=== PATIENT | female | born 1965 | race Caucasian/White ===

== ENCOUNTER 2022-03-11 06:23 | Inpatient (IN) | payer BC ==
[2022-03-08 12:29] LABS: BASOPHILS # (AUTO) 0.1 X10'3 (0-0.2); BASOPHILS % (AUTO) 0.5 % (0-1); EOSINOPHILS # (AUTO) 0.5 X10'3 (0-0.9); EOSINOPHILS % (AUTO) 3.2 % (0-6); LYMPHOCYTES % (AUTO) 26.5 % (21-51); MEAN CORPUSCULAR HEMOGLOBIN 17.9 PG (27.0-31.0); MEAN CORPUSCULAR HGB CONC 31.2 g/dL (33.0-36.5); MEAN CORPUSCULAR VOLUME 57.5 FL (78-98); MEAN PLATELET VOLUME 8.7 FL (7.4-10.4); MONOCYTES # (AUTO) 1.2 X10'3 (0-0.9); MONOCYTES % (AUTO) 8.2 % (2-12); NEUTROPHILS # (AUTO) 9.4 X10'3 (1.8-7.7); NEUTROPHILS % (AUTO) 61.6 % (42-75); PRE OP HEMATOCRIT 37.5 % (35.0-45.0); PRE OP HEMOGLOBIN 11.7 g/dL (12.0-16.0); PRE OP PLATELET COUNT 288 X10'3 (140-440); RED BLOOD COUNT 6.53 X10'6 (4.20-5.60)
[2022-03-08 12:43] LABS: PRE OP PROTIME 10.3 SECONDS (9.0-12.0)
[2022-03-08 12:56] LABS: ALBUMIN 3.8 G/DL (3.4-5.0); ALKALINE PHOSPHATASE 128 IU/L (46-116); BLOOD UREA NITROGEN 20 MG/DL (7-18); BUN/CREATININE RATIO 31.7 (6.6-38.0); CALCIUM 9.3 MG/DL (8.5-10.1); CREATININE 0.63 MG/DL (0.40-0.90); PRE OP ALT 35 U/L (30-65); PRE OP AST 18 U/L (10-37); PRE OP BILIRUB, TOTAL 0.7 MG/DL (0.0-1.0); PRE OP GLUCOSE 75 MG/DL (70-104); TOTAL PROTEIN 7.5 G/DL (6.4-8.2); eGFR > 90 ML/MIN
[2022-03-08 13:10] LABS: PLATELET ESTIMATE NORMAL; TARGET CELLS FEW; TOTAL CELLS COUNTED 100
[2022-03-08 13:11] LABS: ELLIPTOCYTES FEW; LARGE PLATELETS FEW; MICROCYTOSIS 3+
[2022-03-08 13:12] LABS: ACANTHOCYTES FEW
[2022-03-08 13:18] LABS: HEMOGLOBIN A1C 6.2 % (4.5-6.2)
[2022-03-08 13:58] LABS: CHLORIDE 104 MMOL/L (99-107); PRE OP ANION GAP 9 (8-16); PRE OP POTASSIUM 4.1 MMOL/L (3.4-5.1); PRE OP SODIUM 142 MMOL/L (135-145); TOTAL CARBON DIOXIDE 29.3 MMOL/L (24-32)
[~2022-03-11] VITALS: Ht 154.9 cm; Wt 70.0 kg
[2022-03-11] VITALS (18 sets, daily range): BP systolic 98–127; BP diastolic 48–69
[~2022-03-11 06:23] MED LIST: ATEN-169 PO; DOCUMENT DATE & TIME OF BETA-BLOCKER PO ONE; DOXY-224 PO; FOLI1TAB27 PO; GLIM2TAB6 PO; LEVO50TA8 PO; PIME30CR6 TOP; [UNRECOGNIZED DRUG - CODE] TOP; acetaminophen 325mg tablet PO ONE; ceFAZolin inj. 2,000 MG in dextrose 5%-water 100 ML IV ONE; celeCOXIB 100mg capsule PO ONE; famotidine 20mg tablet PO ONE; gabapentin 300mg capsule PO ONE; metoclopramide 5 mg/ml inj IV ONE; oxyCODONE SR 10mg (sust. release) tab -2 tabs (20mg) PO ONE; tranexamic acid inj. 1,000 MG in normal saline 100ml IV soln 100 ML IV ONE; vancomycin/NS 1 GM in NS 250 ML IV ONE
[2022-03-11] MEDS ORDERED: glucagon, human recombinant 1mg kit SUBCUT PRN (06:35)
[2022-03-11] MEDS ORDERED: diphenhydrAMINE 25mg capsule PO PRN ×2 (06:35)
[2022-03-11] MEDS ORDERED: tranexamic acid inj. 1,000 MG in normal saline 100ml IV soln 90 ML IV ONE ×2 (06:35→16:00)
[2022-03-11] MEDS ORDERED: acetaminophen 325mg tablet PO PRN (06:35)
[2022-03-11] MEDS ORDERED: dextrose 50%-water 50ml dispensing syringe IV PRN ×2 (06:35)
[2022-03-11] MEDS ORDERED: MESSAGE TO PHARMACY PO ONE (06:35)
[2022-03-11] MEDS ORDERED: DEXTROSE 15 GM of carb/4 tabs (each vial/BOTTLE has 4 tablets) PO PRN ×2 (06:35)
[2022-03-11] MEDS ORDERED: naloxone 0.4 mg/ml inj IV PRN (06:35)
[2022-03-11] MEDS ORDERED: magnesium hydroxide 30ml (MOM) UD suspension PO PRN (06:35)
[2022-03-11] MEDS ORDERED: bisacodyl 10mg suppository rectal RC PRN (06:35)
[2022-03-11] MEDS: potassium cl 20mEq in 1/2 NS 1,000 ML IV SCH ×3 (06:35→22:35)
[2022-03-11] MEDS ORDERED: HYDROmorphone inj. 0.5 MG/0.5 ML DISP.SYRIN IV PRN (06:35)
[2022-03-11] MEDS ORDERED: HYDROmorphone 1 mg/ml syringe IV PRN (06:35)
[2022-03-11] MEDS: atenolol 50mg tablet PO SCH (08:00)
[2022-03-11] MEDS: multivitamins, therapeutics tablet PO SCH (08:00)
[2022-03-11] MEDS: folic acid 1mg tablet PO SCH ×2 (08:00→19:47)
[2022-03-11] MEDS: PIMECROLIMUS TOP SCH ×2 (08:00→19:48)
[2022-03-11] MEDS ORDERED: non-formulary drug (Levothyroxine Sodium 1 TAB) PO SCH (08:00)
[2022-03-11] MEDS: ascorbic acid 500mg tablet PO SCH ×2 (08:00→19:47)
[2022-03-11] MEDS: gabapentin 300mg capsule PO SCH ×3 (08:00→21:00)
[2022-03-11] MEDS: aspirin 325mg tablet PO SCH (08:30)
[2022-03-11] MEDS: ringers solution, lacted 1,000 ML IV SCH ×2 (08:48→19:33)
[2022-03-11] MEDS ORDERED: tranexamic acid 100mg/ml inj. ONE (08:51)
[2022-03-11] MEDS ORDERED: ketorolac trometh. 30mg/ml inj. ONE (08:51)
[2022-03-11] MEDS ORDERED: epiNEPHrine 1 mg/ml inj ONE (08:51)
[2022-03-11] MEDS ORDERED: ROPIVAcaine 0.5% (5mg/ml) 30ml vial ONE (08:51)
[2022-03-11] MEDS ORDERED: cloNIDine hcl/PF 100mcg/ml inj ONE (09:02)
[2022-03-11 09:39] LABS: BASOPHILS # (AUTO) 0.1 X10'3 (0-0.2); EOSINOPHILS # (AUTO) 0.2 X10'3 (0-0.9); EOSINOPHILS % (AUTO) 2.5 % (0-6); LYMPHOCYTES # (AUTO) 3.2 X10'3 (1.1-4.8); LYMPHOCYTES % (AUTO) 32.9 % (21-51); MEAN CORPUSCULAR HEMOGLOBIN 18.4 PG (27.0-31.0); MEAN CORPUSCULAR HGB CONC 31.9 g/dL (33.0-36.5); MEAN CORPUSCULAR VOLUME 57.8 FL (78-98); MEAN PLATELET VOLUME 9.3 FL (7.4-10.4); MONOCYTES # (AUTO) 0.7 X10'3 (0-0.9); MONOCYTES % (AUTO) 7.3 % (2-12); NEUTROPHILS # (AUTO) 5.5 X10'3 (1.8-7.7); NEUTROPHILS % (AUTO) 56.3 % (42-75); PRE OP HEMATOCRIT 35.6 % (35.0-45.0); PRE OP HEMOGLOBIN 11.3 g/dL (12.0-16.0); PRE OP PLATELET COUNT 221 X10'3 (140-440); RED BLOOD COUNT 6.16 X10'6 (4.20-5.60); RED CELL DISTRIBUTION WIDTH 16.7 % (11.5-14.5)
[2022-03-11 09:56] LABS: ANISOCYTOSIS 1+; ELLIPTOCYTES FEW; HYPOCHROMASIA 1+; MICROCYTOSIS 3+; PLATELET ESTIMATE NORMAL; SCHISTOCYTES FEW
[2022-03-11] MEDS ORDERED: MIDAZolam 1 MG/ML 5ML VIAL ONE (10:14)
[2022-03-11] MEDS ORDERED: fentaNYL/PF 50MCG/1 ML 2ML syringe ONE (10:14)
[2022-03-11] MEDS ORDERED: ePHEDrine 50MG/ML INJ. ONE (10:19)
[2022-03-11] MEDS ORDERED: diphenhydrAMINE 50 mg/ml inj ONE (10:28)
[2022-03-11] MEDS ORDERED: fentaNYL/PF 50MCG/1 ML 2ML syringe IV PRN ×2 (10:40)
[2022-03-11] MEDS ORDERED: enalaprilat dihydrate 2.5mg/2ml vial IV PRN (10:40)
[2022-03-11] MEDS ORDERED: ROPIVAcaine 0.2% (10 MG/5 ML) BOLUS INJECTION ADDCANAL PRN (10:40)
[2022-03-11] MEDS ORDERED: ringers solution, lacted 1,000 ML IV SCH (10:40)
[2022-03-11] MEDS ORDERED: morphine 2 MG/ML inj. syringe IV PRN (10:40)
[2022-03-11] MEDS ORDERED: ondansetron/PF 4mg/2ml inj IV PRN (10:40)
[2022-03-11] MEDS ORDERED: hydrALAZINE 20mg/ml inj. IV PRN (10:40)
[2022-03-11] MEDS ORDERED: morphine 4 MG/ML inj SYRINge IV PRN (10:40)
[2022-03-11] MEDS ORDERED: vancomycin 1,000mg inj ONE (10:43)
--- NOTE | 2022-03-11 10:44 | NUR ---
MUPROCIN NOT GIVEN DR SENIOR OFFICE DID NOT ORDER IT. CSM INTACT, PULSES MARKED, PATIENT TOOK 5 SHOWERS WITH HEBICLENS AND WATCHED DVD JOINT CARE
--- NOTE | 2022-03-11 11:36 | NUR ---
Received from OR via SURGICAL BED , accompanied by Anesthesiologist ANGELIC and report given by Anesthesiolgist. 18G PIV LUE, LR@100ML/HR, RIGHT KNEE WRAP WITH PICCO VAC IN PLACE. NERVE BLOCK SITE TO RIGHT UPPER THIGH.DP PRESENT AND STRONG ALL TOES PWD, SCD'S DONNED, 10 L MASK 100% SAT. DENIES PAIN , SENSATION @T8 2ND TO SPINAL ANESTHIA. Addendum: 03/11/22 at 1208 by Calin Hansen RN, RN Amended: Links added.
[2022-03-11] MEDS: ROPIVAcaine 0.2%/PF PUMP/bolus 545 ML ADDCANAL SCH (12:12)
--- NOTE | 2022-03-11 12:46 | NUR ---
PATIENT HAS MET ALL CRITERIA FOR TRANSFER TO THE ORTHO FLOOR. VSS. DRESSINGS INTACT. BED LOW, CALL LIGHT PRESENT AND 2 RAILS UP. RN PRESENT TO ACCEPT CARE OF PATIENT AND REPORT HAS BEEN CALLED. PALL QUESTIONS ANSWERED TO ACCEPTING RN. VSS, DENIES PAIN. ONE BAG AND A PAIR OF GLASSES SENT WITH PATIENT. AUTOMOBILE CONTRACT CLERK PRESENT TO ASSIST IN SET UP. Addendum: 03/11/22 at 1259 by Calin Hansen RN RN Amended: Links added.
--- NOTE | 2022-03-11 17:00 | NUR ---
Patient was very sleepy and was exhibiting signs of sleep apnea. While asleep her O2 sat would go into the 70's. Called Dr. Thurston and he ordered patient to be put on tele with continuous O2 monitoring. Put the patient on O2 via NC to maintain O2 sat >93% as ordered.
[2022-03-11] MEDS: ceFAZolin/D5W- 1GM premix 50 ML IV SCH (17:42)
--- NOTE | 2022-03-11 18:56 | NUR ---
Problems reprioritized. Patient report given, questions answered & plan of care reviewed with DANNY Vogel.
--- NOTE | 2022-03-11 19:04 | NUR ---
Problems reprioritized. Patient report given, questions answered & plan of care reviewed with DANNY Alfaro. Baljeet Islas4, sitting up eating dinner in bed. .
[2022-03-11] MEDS: insulin Lispro (HumaLOG) vial - multi-dose SQ SCH ×2 (19:44→21:36)
[2022-03-11] MEDS ORDERED: vancomycin/NS 1 GM ADD-VANTAGE 250 ML IV SCH (20:00)
[2022-03-11] MEDS: insulin glargine (Lantus) pen - multi-dose SQ SCH (21:39)
[2022-03-11] MEDS: sennosides 8.6mg tablet PO SCH (21:42)
[2022-03-11] MEDS: DOXYCYCLINE 100MG CAPSULE PO SCH (21:43)
[2022-03-11] MEDS: oxyCODONE/APAP 10/325mg tablet PO PRN (21:48)
[2022-03-12] MEDS: ceFAZolin/D5W- 1GM premix 50 ML IV SCH (00:27)
[2022-03-12] MEDS: ondansetron/PF 4mg/2ml inj IV PRN ×2 (01:02→14:48)
[2022-03-12] MEDS: oxyCODONE/APAP 10/325mg tablet PO PRN ×3 (05:10→22:49)
[2022-03-12 06:00] VITALS: BP 115/60
--- NOTE | 2022-03-12 06:21 | NUR ---
Problems reprioritized. Patient report given, questions answered & plan of care reviewed with DANNY Martinez.
[2022-03-12 06:27] LABS: BASOPHILS % (AUTO) 0 % (0-1); EOSINOPHILS % (AUTO) 0.1 % (0-6); HEMATOCRIT 29.2 % (35.0-45.0); HEMOGLOBIN 9.2 g/dl (12.0-16.0); LYMPHOCYTES # (AUTO) 1.5 X10'3 (1.1-4.8); LYMPHOCYTES % (AUTO) 9.7 % (21-51); MEAN CORPUSCULAR HEMOGLOBIN 18.3 PG (27.0-31.0); MEAN CORPUSCULAR HGB CONC 31.4 g/dL (33.0-36.5); MEAN CORPUSCULAR VOLUME 58.1 FL (78-98); MEAN PLATELET VOLUME 8.6 FL (7.4-10.4); MONOCYTES # (AUTO) 1.4 X10'3 (0-0.9); MONOCYTES % (AUTO) 8.8 % (2-12); NEUTROPHILS # (AUTO) 12.8 X10'3 (1.8-7.7); NEUTROPHILS % (AUTO) 81.4 % (42-75); PLATELET COUNT 180 X10'3 (140-440); RED BLOOD COUNT 5.02 X10'6 (4.20-5.60); RED CELL DISTRIBUTION WIDTH 16.1 % (11.5-14.5); WHITE BLOOD COUNT 15.7 X10'3 (4.5-11.0)
[2022-03-12 06:48] LABS: ANION GAP 3 (8-16); CHLORIDE 107 MMOL/L (99-107); POTASSIUM 4.7 MMOL/L (3.5-5.1); SODIUM 137 MMOL/L (135-145); TOTAL CARBON DIOXIDE 27.5 MMOL/L (24-32)
[2022-03-12 07:07] LABS: ANISOCYTOSIS 1+; MICROCYTOSIS 3+; PLATELET ESTIMATE NORMAL
[2022-03-12 07:08] LABS: ELLIPTOCYTES FEW; POIKILOCYTOSIS FEW
[2022-03-12] MEDS: levoTHYROXINE 25mcg tablet PO SCH (07:08)
[2022-03-12] MEDS: potassium cl 20mEq in 1/2 NS 1,000 ML IV SCH ×3 (07:08→22:55)
[2022-03-12] MEDS: SULFACETAMIDE SODIUM TP SCH (08:00)
[2022-03-12] MEDS: PIMECROLIMUS TOP SCH ×2 (08:00→20:00)
[2022-03-12] MEDS: insulin Lispro (HumaLOG) vial - multi-dose SQ SCH ×3 (08:36→18:52)
[2022-03-12] MEDS: aspirin 325mg tablet PO SCH (08:42)
[2022-03-12] MEDS: folic acid 1mg tablet PO SCH ×2 (08:42→20:08)
[2022-03-12] MEDS: gabapentin 300mg capsule PO SCH ×3 (08:42→20:09)
[2022-03-12] MEDS: ascorbic acid 500mg tablet PO SCH ×2 (08:42→20:09)
[2022-03-12] MEDS: multivitamins, therapeutics tablet PO SCH (08:42)
[2022-03-12] MEDS: atenolol 50mg tablet PO SCH (08:42)
[2022-03-12] MEDS: ROPIVAcaine 0.2%/PF PUMP/bolus 545 ML ADDCANAL SCH (09:08)
[2022-03-12 10:00] VITALS: BP 118/57
--- NOTE | 2022-03-12 11:37 | NUR ---
DM consult: Pt with T2DM, well controlled with A1c 6.1%, DM education not warranted at this time. Pt s/p right TKA. Written protein education with RD contact information placed in patient's chart. Pt pending discharge at this time. Will continue to follow. Addendum: 03/12/22 at [address] Amended: Links added.
[2022-03-12 14:00] VITALS: BP 110/62
[2022-03-12 17:00] VITALS: BP 140/69
--- NOTE | 2022-03-12 17:21 | NUR ---
Pt reported pain and numbness and difficult to move R leg. Pedal pulse palpable to R foot. Moderate swelling noted to R leg when removed knee wrap. Island dressing to R leg intact with 2 small areas of red drainage noted to island dressing. Pt felt significant relief of numbness/discomfort after knee wrap removed.R leg elevated with 2 pillows while pt in recliner chair.
--- NOTE | 2022-03-12 19:24 | NUR ---
Patient in room ORTHO 4014. I have received report from DANNY Martinez and had the opportunity to ask questions and assume patient care.
[2022-03-12] MEDS: celeCOXIB 100mg capsule PO SCH (20:08)
[2022-03-12] MEDS: sennosides 8.6mg tablet PO SCH (20:10)
[2022-03-12] MEDS: DOXYCYCLINE 100MG CAPSULE PO SCH (20:10)
[2022-03-12] MEDS: insulin glargine (Lantus) pen - multi-dose SQ SCH (21:21)
[2022-03-12 22:00] VITALS: BP 121/62
[2022-03-13] MEDS: oxyCODONE/APAP 10/325mg tablet PO PRN ×3 (05:29→23:26)
[2022-03-13 06:18] LABS: BASOPHILS % (AUTO) 0.4 % (0-1); EOSINOPHILS # (AUTO) 0.1 X10'3 (0-0.9); EOSINOPHILS % (AUTO) 0.8 % (0-6); HEMATOCRIT 28.3 % (35.0-45.0); HEMOGLOBIN 8.9 g/dl (12.0-16.0); LYMPHOCYTES # (AUTO) 2.9 X10'3 (1.1-4.8); LYMPHOCYTES % (AUTO) 21.3 % (21-51); MEAN CORPUSCULAR HEMOGLOBIN 18.2 PG (27.0-31.0); MEAN CORPUSCULAR HGB CONC 31.4 g/dL (33.0-36.5); MEAN PLATELET VOLUME 8.7 FL (7.4-10.4); MONOCYTES # (AUTO) 1.9 X10'3 (0-0.9); MONOCYTES % (AUTO) 14.1 % (2-12); NEUTROPHILS # (AUTO) 8.6 X10'3 (1.8-7.7); NEUTROPHILS % (AUTO) 63.4 % (42-75); PLATELET COUNT 166 X10'3 (140-440); RED BLOOD COUNT 4.87 X10'6 (4.20-5.60); RED CELL DISTRIBUTION WIDTH 16.3 % (11.5-14.5); WHITE BLOOD COUNT 13.5 X10'3 (4.5-11.0)
--- NOTE | 2022-03-13 06:29 | NUR ---
Problems reprioritized. Patient report given, questions answered & plan of care reviewed with DANNY Valles.
--- NOTE | 2022-03-13 06:34 | NUR ---
Patient in room ORTHO 4014. I have received report from Haydee DELGADO and had the opportunity to ask questions and assume patient care.
[2022-03-13 06:49] VITALS: BP 112/56
[2022-03-13 07:12] LABS: ANISOCYTOSIS 1+; PLATELET ESTIMATE NORMAL; POIKILOCYTOSIS FEW
[2022-03-13 07:13] LABS: ELLIPTOCYTES FEW; MICROCYTOSIS 3+; TARGET CELLS FEW
[2022-03-13] MEDS: SULFACETAMIDE SODIUM TP SCH (08:00)
[2022-03-13] MEDS: PIMECROLIMUS TOP SCH ×2 (08:00→20:00)
[2022-03-13] MEDS: ascorbic acid 500mg tablet PO SCH ×2 (09:14→20:31)
[2022-03-13] MEDS: aspirin 325mg tablet PO SCH (09:14)
[2022-03-13] MEDS: multivitamins, therapeutics tablet PO SCH (09:14)
[2022-03-13] MEDS: gabapentin 300mg capsule PO SCH ×3 (09:14→20:31)
[2022-03-13] MEDS: celeCOXIB 100mg capsule PO SCH ×2 (09:16→20:31)
[2022-03-13] MEDS: atenolol 50mg tablet PO SCH (09:16)
[2022-03-13] MEDS: levoTHYROXINE 25mcg tablet PO SCH (09:17)
[2022-03-13] MEDS: folic acid 1mg tablet PO SCH ×2 (09:17→20:31)
[2022-03-13] MEDS: insulin Lispro (HumaLOG) vial - multi-dose SQ SCH ×3 (09:23→19:13)
[2022-03-13 10:00] VITALS: BP 115/58
[2022-03-13] MEDS: ROPIVAcaine 0.2%/PF PUMP/bolus 545 ML ADDCANAL SCH (10:36)
[2022-03-13] MEDS: ondansetron/PF 4mg/2ml inj IV PRN (14:11)
--- NOTE | 2022-03-13 16:15 | NUR ---
Notified MD that Patient has not been cleared by PT to go home and will be staying another night. MD verified that it was okay and and expressed verbally that she will be staying another night.
[2022-03-13 18:00] VITALS: BP_SYST 123; BP_SYST 126; BP_DIAS 60; BP_DIAS 84
--- NOTE | 2022-03-13 18:20 | NUR ---
Patient in room ORTHO 4014. I have received report from DANNY Valles and had the opportunity to ask questions and assume patient care.
--- NOTE | 2022-03-13 18:28 | NUR ---
Problems reprioritized. Patient report given, questions answered & plan of care reviewed with Haydee DELGADO/Yarely VAUGHAN.
[2022-03-13] MEDS: sennosides 8.6mg tablet PO SCH (20:32)
[2022-03-13] MEDS: DOXYCYCLINE 100MG CAPSULE PO SCH (20:32)
[2022-03-13] MEDS: insulin glargine (Lantus) pen - multi-dose SQ SCH (21:23)
[2022-03-13 22:00] VITALS: BP 114/51
[2022-03-14] MEDS: oxyCODONE/APAP 10/325mg tablet PO PRN (05:26)
[2022-03-14] MEDS: ondansetron/PF 4mg/2ml inj IV PRN (05:26)
[2022-03-14 06:27] LABS: BASOPHILS # (AUTO) 0.1 X10'3 (0-0.2); BASOPHILS % (AUTO) 0.5 % (0-1); EOSINOPHILS # (AUTO) 0.2 X10'3 (0-0.9); EOSINOPHILS % (AUTO) 1.5 % (0-6); HEMATOCRIT 28.3 % (35.0-45.0); HEMOGLOBIN 8.9 g/dl (12.0-16.0); LYMPHOCYTES # (AUTO) 2.6 X10'3 (1.1-4.8); LYMPHOCYTES % (AUTO) 23.2 % (21-51); MEAN CORPUSCULAR HEMOGLOBIN 18.3 PG (27.0-31.0); MEAN CORPUSCULAR HGB CONC 31.5 g/dL (33.0-36.5); MEAN CORPUSCULAR VOLUME 58.2 FL (78-98); MEAN PLATELET VOLUME 9.7 FL (7.4-10.4); MONOCYTES # (AUTO) 1.6 X10'3 (0-0.9); MONOCYTES % (AUTO) 14.1 % (2-12); NEUTROPHILS # (AUTO) 6.7 X10'3 (1.8-7.7); NEUTROPHILS % (AUTO) 60.7 % (42-75); PLATELET COUNT 169 X10'3 (140-440); RED BLOOD COUNT 4.86 X10'6 (4.20-5.60); RED CELL DISTRIBUTION WIDTH 16.5 % (11.5-14.5)
--- NOTE | 2022-03-14 06:30 | NUR ---
Problems reprioritized. Patient report given, questions answered & plan of care reviewed with DANNY Valles.
--- NOTE | 2022-03-14 06:55 | NUR ---
Patient in room ORTHO 4014. I have received report from Haydee DELGADO and had the opportunity to ask questions and assume patient care.
[2022-03-14 07:04] LABS: ANISOCYTOSIS 1+; ELLIPTOCYTES FEW; HYPOCHROMASIA 1+; MICROCYTOSIS 3+; PLATELET ESTIMATE NORMAL; TARGET CELLS FEW; TEAR DROP CELLS 1+
[2022-03-14] MEDS: PIMECROLIMUS TOP SCH (08:00)
[2022-03-14] MEDS: SULFACETAMIDE SODIUM TP SCH (08:00)
[2022-03-14] MEDS: ascorbic acid 500mg tablet PO SCH (09:16)
[2022-03-14] MEDS: multivitamins, therapeutics tablet PO SCH (09:16)
[2022-03-14] MEDS: gabapentin 300mg capsule PO SCH ×2 (09:17→13:00)
[2022-03-14] MEDS: celeCOXIB 100mg capsule PO SCH (09:18)
[2022-03-14] MEDS: folic acid 1mg tablet PO SCH (09:19)
[2022-03-14] MEDS: atenolol 50mg tablet PO SCH (09:19)
[2022-03-14] MEDS: aspirin 325mg tablet PO SCH (09:19)
[2022-03-14] MEDS: levoTHYROXINE 25mcg tablet PO SCH (09:19)
[2022-03-14] MEDS: insulin Lispro (HumaLOG) vial - multi-dose SQ SCH (09:56)
[2022-03-14 10:25] VITALS: BP_SYST 109
[2022-03-14] MEDS: ROPIVAcaine 0.2%/PF PUMP/bolus 545 ML ADDCANAL SCH (14:01)
--- NOTE | 2022-03-14 14:28 | NUR ---
Patient discharge home today after being cleared by MD and PT. Patient discharge was done with family in the room. Patient IV taken out at time of discharge and canula was whole and intact upon inspection. Patient left with all belongings. patient and spouse educated on dressing, Daniel pump, and ONQ removal. Patient was taken out via wheelchair.
== END 2022-03-14 14:30 | disposition home or self-care (01) | DRG 470 ==
LOC: PAS 06:23 → PAS IN 06:40 → ORTHO 4S 12:55
PROVIDERS: ADMIT Orthopaedic Surgery; ATTEND Orthopaedic Surgery
PROC: 0SRC0J9 Replacement of Right Knee Joint with Synthetic Substitute, Cemented, Open Approach (ICD-10-PCS; principal; 2022-03-11 09:50)
DX: M17.0 Bilateral primary osteoarthritis of knee (principal); M76.9 Unspecified enthesopathy, lower limb, excluding foot; Z20.822 Contact with and (suspected) exposure to COVID-19; E03.9 Hypothyroidism, unspecified; E66.8 Other obesity; E11.51 Type 2 diabetes mellitus with diabetic peripheral angiopathy without gangrene; I10 Essential (primary) hypertension; Z87.442 Personal history of urinary calculi; Z88.1 Allergy status to other antibiotic agents; Z88.6 Allergy status to analgesic agent; Z68.29 Body mass index [BMI] 29.0-29.9, adult
CPT/HCPCS: Z7506; Z7508; 36415; 73560; 80051; 80053; 82948; 83036; 84443; 85007; 85008; 85025; 85610; 85730; 86885; 86900; 86901; 87081; 87635; 97110; 97116; 97161; 97530; A4215; A7000; C1713; C1776; C9803; G0378; J0171; J0690; J0735; J1170; J1200; J1815; J1885; J2250; J2405; J2765; J2795; J3010; J3370; J3480; J3490; J7060; J7120

== ENCOUNTER 2022-05-30 09:55 | Emergency (ER) | payer BC ==
[~2022-05-30] VITALS: Ht 160 cm; Wt 68.2 kg
[~2022-05-30 09:55] MED LIST changes: -DOCUMENT DATE & TIME OF BETA-BLOCKER PO ONE; -acetaminophen 325mg tablet PO ONE; -ceFAZolin inj. 2,000 MG in dextrose 5%-water 100 ML IV ONE; -celeCOXIB 100mg capsule PO ONE; -famotidine 20mg tablet PO ONE; -gabapentin 300mg capsule PO ONE; -metoclopramide 5 mg/ml inj IV ONE; -oxyCODONE SR 10mg (sust. release) tab -2 tabs (20mg) PO ONE; -tranexamic acid inj. 1,000 MG in normal saline 100ml IV soln 100 ML IV ONE; -vancomycin/NS 1 GM in NS 250 ML IV ONE
[2022-05-30 10:02] VITALS: BP 130/79
[2022-05-30] MEDS ORDERED: HYDROcodone/acetaminophen 5mg/325mg tablet PO ONE (11:30)
[2022-05-30] MEDS ORDERED: ibuprofen tablet 400 MG TABLET PO ONE (11:30)
[2022-05-30] MEDS ORDERED: IBUP-1985 PO (13:18)
== END 2022-05-30 13:27 | disposition home or self-care (01) ==
LOC: ER 09:55
DX: M71.21 Synovial cyst of popliteal space [Baker], right knee (principal); I10 Essential (primary) hypertension; M19.90 Unspecified osteoarthritis, unspecified site; Z88.1 Allergy status to other antibiotic agents; Z88.2 Allergy status to sulfonamides; Z88.5 Allergy status to narcotic agent; Z91.041 Radiographic dye allergy status
CPT/HCPCS: 93971; 99284